=== PATIENT | female | born 1935 | race Caucasian/White ===

== ENCOUNTER → 2020-09-01 01:01 | Outpatient (CLI) | payer MEDICARE, SELFPAY ==
[2020-09-01 19:37] LABS: SARS-CoV-2 RNA PCR Negative
== END ==
PROVIDERS: Nurse Practitioner; PCP Family Medicine; Visit Provider Internal Medicine Gastroenterology
DX: Z01.812 Encounter for preprocedural laboratory examination (principal); Z20.822 Contact with and (suspected) exposure to COVID-19
CPT/HCPCS: C9803; U0003; U0005

== ENCOUNTER 2020-09-05 01:23 | Day surgery (SDC) | payer MEDICARE, SELFPAY ==
[2020-08-24 12:53] VITALS: BMI 25.2
[2020-09-05 06:24] VITALS: BP 161/80; PULSE 84; RESP 15; TEMP 35.9; O2SAT 95; BMI 24.8
[2020-09-05] MEDS: LACTATED RINGERS 1,000 ML 150 ML IV CONT (06:27)
--- NOTE | 2020-09-05 07:15 | WPDANESEPPF ---
Anes - Initial Pre Proc Eval Procedure: Operation Date: 09/05/20 07:30 Proposed Procedures p Colonoscopy - Roman Penny MD Date/Time: 09/05/20 07:15 Surgeon: Roman Penny MD Pre Op Diagnosis: change in bowel habit, hx colon polyp Patient Data Age: 85 Gender: F Height: 5 ft 2 in Weight: 61.6 kg Last Vital Signs Temp 96.7 F L 09/05/20 06:24 Pulse 84 09/05/20 06:24 Resp 15 09/05/20 06:24 BP 161/80 H 09/05/20 06:24 Pulse Ox 95 09/05/20 06:24 Allergies Allergy/AdvReac Type Severity Reaction Status Date / Time No Known Allergies Allergy Verified 09/05/20 06:22 Home Medications Medication Instructions Recorded Confirmed Type dorzolamide 22.3 mg-timolol 6.8 1 drop OPHTHALMIC (EYE) DAILY ml 06/08/19 09/05/20 History mg/mL eye drops netarsudil 0.02 % eye drops 1 drop OPHTHALMIC (EYE) DAILY ml 06/08/19 09/05/20 History ascorbate calcium (vitamin C) 500 500 mg PO DAILY 09/14/19 09/05/20 History mg tablet aspirin 81 mg tablet,delayed 81 mg PO DAILY 09/14/19 09/05/20 History release calcium carbonate 600 mg calcium 600 mg PO DAILY 09/14/19 09/05/20 History (1,500 mg) tablet multivitamin 1 tablet PO DAILY 09/14/19 09/05/20 History omega 0-kce-voh-fish oil 1,200 mg 1 cap PO DAILY 09/14/19 09/05/20 History (144 mg-216 mg) capsule sodium chloride 2 % eye drops 1 drop EACH EYE DAILY 11/17/19 09/05/20 History simvastatin 20 mg tablet 20 mg PO DAILY #90 tablet 01/30/20 09/05/20 Rx amlodipine 2.5 mg tablet See Rx Instructions .ROUTE 07/03/20 09/05/20 Rx .COMPLEX #90 tablet sod picosulf 10 mg-magnes 3.5 160 ml PO BID #160 ml 08/06/20 09/05/20 Rx gram-citric 12 gram/160 mL oral solution raloxifene [Evista] 60 mg PO DAILY 08/24/20 09/05/20 History Patient hx anesthesia problems: none Family hx anesthesia problems: none [facility] Past Medical History Medical History (Updated 07/31/20 @ 10:26 by Roman Penny MD) Chronic back pain Colon polyps Glaucoma Hyperlipidemia Neuropathy Osteoporosis without current pathological fracture Polyneuropathy Scoliosis Trigger finger Vision impairment Surgical History Surgical History History of appendectomy (~1948) History of hand surgery (~2005) trigger finger surgery History of hysterectomy (~1972) age 37 Hx of breast augmentation (~1977) Hx of tonsillectomy (~1948) [place] teeth extracted (~1953) Family History Family History Sibling Family history of osteoarthritis Family history of malignant neoplasm Family history of malignant neoplasm of breast in first degree relative Father Family history of Parkinson's disease Mother Family history of lung cancer Patient's mother is Grandparent Family history of malignant neoplasm Other Family history of arthritis Social History Social History Smoking status: Former smoker Tobacco type: cigarettes Alcohol intake: current Substance use: never Substance use type: does not use Living arrangements: with family Gender identity (if verbalized by the patient): Female Anes - Eval Final PreProcedure Day of Procedure 09/05/20 07:15 Patient weight: normal Heart: regular rate and rhythm Lungs: clear to auscultation Airway: Mallampati scale class II Neurological: alert and oriented Last oral intake: >/= 8 hours ASA classification: III Emergent: no Anesthetic plan: proceed Anesthesia type and monitoring: general GIVS and standard monitoring Informed Consent: The patient's anesthetic plan and its attendant risks and benefits were discussed with the patient/family/POA. Questions were solicited and answers provided to the satisfaction of the patient/family/POA.
--- NOTE | 2020-09-05 07:29 | WPDHPUPDATE1 ---
History and Physical Update Update Date/Time: 09/05/20 07:29 History and Physical has been reviewed, including an updated exam of the patient. There are NO changes in the patient's condition. Risks, benefits, and alternatives have been discussed and questions answered. Patient agrees to proceed with procedure.
[2020-09-05 07:57] VITALS: BP 141/61; PULSE 72; RESP 18; O2SAT 96
[2020-09-05 08:07] VITALS: BP 145/62; PULSE 69; RESP 24; O2SAT 96
[2020-09-05 08:17] VITALS: BP 115/70; PULSE 64; RESP 25; O2SAT 99
--- NOTE | 2020-09-07 10:48 | WPDGICN ---
Assessment and Plan Assessment and plan (1) Colon polyps: Code(s): K63.5 - Polyp of colon Status: Acute Assessment and Plan: patient is a history of colon polyps. Last colonoscopy was 2011. There is no family history of colon polyps. As it has been 7 years since last exam we will proceed with colonoscopy to evaluate for recurrent polyps at this time. (2) Altered bowel habits: Code(s): R19.4 - Change in bowel habit Status: Acute Assessment and Plan: Patient complains of altered bowel habits. Bowel habits actually are regular but she complains of rectal and anal discomfort. She feels as though she may have incomplete evacuation and feels a mass described as a ball in the rectal area. Plan is for continued stool softeners fiber supplement such as Citrucel. Colonoscopy will be performed to evaluate more thoroughly. GI Consult Note Consult date/time: 09/07/20 10:48 HPI: Carolyn Ortiz is a 85 year old female Presents for colonoscopy on 09/05/2020. Patient is seen at the request of Dr. Gómez. Patient reports alteration in her bowel habits over the last year. She states that after a bowel movement she continues to have stools suggesting incomplete evacuation. She feels as though she is sitting on a ball . She denies any bleeding or weight loss. She states otherwise her bowels are regular and occur every day. She reports stools are not hard. She has had no weight loss. Family history noncontributory. Patient reports having had colonoscopies every 3-5 years in the past. She did have colon polyps dating back to the 1970s. Most recent colonoscopy 2011. At that time she had an adenomatous colon polyp. Family history is negative. No one else in the family has had colon polyps or cancer. Review of Systems Review of Systems: All systems reviewed & are unremarkable except as noted in HPI and below PMFSH Past Medical History Medical History (Updated 07/31/20 @ 10:26 by Roman Penny MD) Chronic back pain Colon polyps Glaucoma Hyperlipidemia Neuropathy Osteoporosis without current pathological fracture Polyneuropathy Scoliosis Trigger finger Vision impairment Surgical History Surgical History History of appendectomy (~1949) History of hand surgery (~2005) trigger finger surgery History of hysterectomy (~1972) age 37 Hx of breast augmentation (~1977) Hx of tonsillectomy (~1948) [place] teeth extracted (~1953) Family History Family History Sibling Family history of osteoarthritis Family history of malignant neoplasm Family history of malignant neoplasm of breast in first degree relative Father Family history of Parkinson's disease Mother Family history of lung cancer Patient's mother is Grandparent Family history of malignant neoplasm Other Family history of arthritis Social History Social History Smoking status: Former smoker Tobacco type: cigarettes Alcohol intake: current Substance use: never Substance use type: does not use Living arrangements: with family Gender identity (if verbalized by the patient): Female Meds Home Medications and Allergies Home Medications Medication Instructions Recorded Confirmed Type dorzolamide 22.3 mg-timolol 6.8 1 drop OPHTHALMIC (EYE) DAILY ml 06/08/19 09/05/20 History mg/mL eye drops netarsudil 0.02 % eye drops 1 drop OPHTHALMIC (EYE) DAILY ml 06/08/19 09/05/20 History ascorbate calcium (vitamin C) 500 500 mg PO DAILY 09/14/19 09/05/20 History mg tablet aspirin 81 mg tablet,delayed 81 mg PO DAILY 09/14/19 09/05/20 History release calcium carbonate 600 mg calcium 600 mg PO DAILY 09/14/19 09/05/20 History (1,500 mg) tablet multivitamin 1 tablet PO DAILY 09/14/19 09/05/20 History omega 3-dha-epa-f
== END 2020-09-05 08:35 | disposition home or self-care (01) ==
PROVIDERS: PCP Family Medicine; Visit Provider Internal Medicine Gastroenterology
PROC: 0DJD8ZZ Inspection of Lower Intestinal Tract, Via Natural or Artificial Opening Endoscopic (ICD-10-PCS; CPT 45378; principal; 2020-09-05 07:30)
DX: K62.89 Other specified diseases of anus and rectum (principal); K59.00 Constipation, unspecified; K57.30 Diverticulosis of large intestine without perforation or abscess without bleeding; K64.8 Other hemorrhoids; Z86.010 Personal history of colon polyps; E78.5 Hyperlipidemia, unspecified; M81.0 Age-related osteoporosis without current pathological fracture; G62.9 Polyneuropathy, unspecified; H40.9 Unspecified glaucoma; Z79.82 Long term (current) use of aspirin; Z87.891 Personal history of nicotine dependence
CPT/HCPCS: 45378; J2704; J7120

== ENCOUNTER → 2020-11-10 08:18 | Outpatient (CLI) | payer MEDICARE, SELFPAY ==
--- NOTE | ~2020-11-10 | XR_ITS ---
EXAMINATION: XR chest 2V DATE: 11/10/2020 08:53 INDICATION: Pleurodynia TECHNIQUE: frontal and lateral views of the chest were obtained. COMPARISON: Chest radiograph dated 03/14/2011 FINDINGS: The lungs are clear with no focal airspace opacities, pulmonary edema, pleural effusion or pneumothor ax. The cardiomediastinal silhouette is normal. Bilateral breast implants. Upper thoracic kyphosis an d lower thoracic dextroscoliosis. Margins of the vertebral bodies are difficult to distinguish the mi d thoracic spine due to diffuse osteopenia. IMPRESSION: 1. No acute cardiopulmonary disease. Reviewed, dictated and finalized at location A.
== END ==
PROVIDERS: PCP Family Medicine; Visit Provider Nurse Practitioner Family
DX: R07.81 Pleurodynia (principal)
CPT/HCPCS: 71046

== ENCOUNTER 2021-12-11 11:31 | Outpatient (CLI) | payer MEDICARE, SELFPAY ==
[2021-12-11 18:40] LABS: Alanine Aminotransferase 22 U/L (6-35); Albumin Level 4.4 g/dL (3.5-5.1); Alkaline Phosphatase 48 U/L (38-126); Anion Gap 13 mmol/L (8-16); Aspartate Amino Transferase 63 U/L (14-36); Bilirubin,Total 0.5 mg/dL (0.2-1.3); Blood Urea Nitrogen 15 mg/dL (7-17); Calcium 9.4 mg/dL (8.4-10.2); Carbon Dioxide 28 mmol/L (22-30); Chloride 103 mmol/L (98-107); Estimated Glomerular Filt Rate > 60; Glucose 74 mg/dL (65-110); Potassium 3.9 mmol/L (3.4-5.0); Sodium 144 mmol/L (137-145)
== END 2021-12-11 11:32 | disposition home or self-care (01) ==
LOC: ANHGOSHLAB 11:32
PROVIDERS: PCP Family Medicine; Visit Provider Family Medicine
DX: E78.5 Hyperlipidemia, unspecified (principal); I10 Essential (primary) hypertension
CPT/HCPCS: 36415; 80053

== ENCOUNTER → 2022-01-02 10:49 | Outpatient (CLI) | payer MEDICARE, SELFPAY ==
--- NOTE | ~2022-01-02 | XR_ITS ---
EXAMINATION: XR knee LT min 4V DATE: 01/02/2022 11:22 INDICATION: Left knee pain. TECHNIQUE: 4 views of left knee were obtained. COMPARISON: None. FINDINGS: Bone alignment is normal. No fracture. There is moderate osteoarthritis of medial compartme nt and mild osteoarthritis of lateral and patellofemoral compartments. There is a small knee joint ef fusion. IMPRESSION: 1. Moderate left knee osteoarthritis. 2. Small left knee joint effusion. Reviewed, dictated and finalized at location A.
== END ==
PROVIDERS: PCP Family Medicine; Visit Provider Family Medicine
DX: M17.12 Unilateral primary osteoarthritis, left knee (principal); M25.462 Effusion, left knee
CPT/HCPCS: 73564

== ENCOUNTER 2022-01-17 10:08 | Outpatient (CLI) | payer MEDICARE, SELFPAY ==
[2022-01-17 19:56] LABS: Alanine Aminotransferase 21 U/L (6-35); Albumin Level 4.4 g/dL (3.5-5.1); Alkaline Phosphatase 47 U/L (38-126); Anion Gap 14 mmol/L (8-16); Aspartate Amino Transferase 31 U/L (14-36); Bilirubin,Total 0.4 mg/dL (0.2-1.3); Blood Urea Nitrogen 10 mg/dL (7-17); Calcium 9.1 mg/dL (8.4-10.2); Carbon Dioxide 28 mmol/L (22-30); Chloride 99 mmol/L (98-107); Estimated Glomerular Filt Rate > 60; Glucose 93 mg/dL (65-110); Potassium 3.9 mmol/L (3.4-5.0); Sodium 141 mmol/L (137-145)
== END 2022-01-17 10:09 | disposition home or self-care (01) ==
LOC: ANHGOSHLAB 10:09
PROVIDERS: PCP Family Medicine; Visit Provider Family Medicine
DX: R35.0 Frequency of micturition (principal); I10 Essential (primary) hypertension
CPT/HCPCS: 36415; 80053

== ENCOUNTER 2022-01-20 08:59 | Outpatient (NON) | payer MEDICARE, SELFPAY ==
[2022-01-20 18:44] LABS: Add Urine Microscopic? NO; Appearance Urine Clear (Clear); Bilirubin Urine Negative (Negative); Blood Urine Negative (Negative); Color Urine Straw (Yellow); Glucose Urine UA Negative (Negative); Ketones Urine Negative (Negative); Leukocyte Esterase Ur Negative LEU/UL (Negative); Nitrate Urine Negative (Negative); Protein Urine Negative (Negative); Specific Grav Ur 1.005 (1.001-1.035); Urobilinogen Urine Negative mg/dL (<2.0)
== END 2022-01-20 09:00 | disposition home or self-care (01) ==
LOC: ANHGOSHLAB 09:01
PROVIDERS: PCP Family Medicine; Visit Provider Family Medicine
DX: R35.0 Frequency of micturition (principal)
CPT/HCPCS: 81003

== ENCOUNTER 2022-06-18 11:02 | Outpatient (CLI) | payer MEDICARE, SELFPAY ==
[2022-06-18 19:36] LABS: Vitamin D 25 Hydroxy 38.7 ng/mL
[2022-06-18 19:37] LABS: Hematocrit 42.4 % (37.0-47.0); Hemoglobin 13.9 g/dL (12.0-15.0); Mean Corpuscular HGB Conc 32.8 g/dl (32-36); Mean Corpuscular Hemoglobin 32.5 pg (26-34); Mean Corpuscular Volume 99.1 fl (80-100); Mean Platelet Volume 10.1 fl (7.4-10.4); Platelet Count Result 272 k/mm3 (150-375); Red Blood Count 4.28 M/mm3 (4.2-5.4); Red Cell Distribution Width 13.3 % (11.5-14.5); White Blood Count 5.3 K/mm3 (4.5-10.0)
[2022-06-18 19:48] LABS: Alanine Aminotransferase 26 U/L (6-35); Albumin Level 4.5 g/dL (3.5-5.1); Alkaline Phosphatase 56 U/L (38-126); Anion Gap 9 mmol/L (8-16); Aspartate Amino Transferase 31 U/L (14-36); Bilirubin,Total 0.3 mg/dL (0.2-1.3); Blood Urea Nitrogen 11 mg/dL (7-17); Carbon Dioxide 28 mmol/L (22-30); Chloride 106 mmol/L (98-107); Cholesterol 182 mg/dL (0-200); Estimated Glomerular Filt Rate > 60; Glucose 94 mg/dL (65-110); HDL Direct 46 mg/dL; Potassium 4.2 mmol/L (3.4-5.0); Sodium 143 mmol/L (137-145); Triglycerides 140 mg/dL (<150)
[2022-06-18 20:04] LABS: LDL Cholesterol Direct 98 mg/dL
[2022-06-18 20:37] LABS: Band Neutrophils Percent 9 % (0-6); Eosinophils Absolute Manual 0.05 K/mm3 (0.02-0.5); Eosinophils Percent Manual 1 % (0-4); Monocytes Percent Manual 2 % (3-9); Neutrophils Absolute Manual 3.23 K/mm3 (1.7-7.2); Neutrophils Percent Manual 52 % (46-73); Total Cells Counted 100
[2022-06-18 20:38] LABS: Platelet Estimate Adequate (Adequate); Schistocytes None Seen (NORMAL)
[2022-06-18 20:39] LABS: Large Platelets Present
== END 2022-06-18 11:03 | disposition home or self-care (01) ==
LOC: ANHGOSHLAB 11:04
PROVIDERS: PCP Family Medicine; Visit Provider Nurse Practitioner
DX: E55.9 Vitamin D deficiency, unspecified (principal); I10 Essential (primary) hypertension; E78.5 Hyperlipidemia, unspecified
CPT/HCPCS: 36415; 80053; 80061; 82306; 85025; 87086

== ENCOUNTER 2022-06-18 19:10 | Outpatient (NON) | payer MEDICARE, SELFPAY | END 2022-06-18 19:11 | disposition home or self-care (01) | LOC: ANHLAB 19:12 | PROVIDERS: PCP Family Medicine; Visit Provider Nurse Practitioner | DX: R35.0 Frequency of micturition (principal) | CPT/HCPCS: 87086 ==

== ENCOUNTER → 2022-09-10 08:39 | Outpatient (CLI) | payer MEDICARE, SELFPAY ==
--- NOTE | ~2022-09-10 | DEXA_ITS ---
Bone Density Report Name: CLINT ARREOLA Age: 87 Sex: Female Ethnicity: White Date of : 1935 Indication: osteopenia; height loss; prior fracture; hysterectomy; postmenopausal Referring Provider: RUDDY ARELLANO Study: Bone densitometry was performed. Exam Date: September 10, 2022 Accession number: [id number] Bone Density: Region BMD T-score Z-score Classification AP Spine (L1, L3) 1.128 1.0 3.8 Normal Femoral Neck (Left) 0.585 -2.4 0.1 Osteopenia Total Hip (Left) 0.704 -2.0 0.4 Osteopenia Femoral Neck (Right) 0.542 -2.8 -0.2 Osteoporosis Total Hip (Right) 0.665 -2.3 0.1 Osteopenia Total Hip Mean 0.685 -2.2 0.3 Osteopenia World Health Organization criteria for BMD impression classify patients as: Normal (T-score at or above -1.0), Osteopenia (T-score between -1.0 and -2.5), or Osteoporosis (T-score at or below -2.5). 10-year Fracture Risk: FRAX not reported because: Some T-score for Spine Total or Hip Total or Femoral Neck at or below -2.5 Previous Exams: Region Exam Age BMD T-score BMD Change BMD Change Date g/cm2 vs Baseline vs Previous AP Spine(L1, L3) 09/10/2022 87 1.128 1.0 0.281* 0.269* 12/28/2014 79 0.859 -1.4 0.012 0.012 11/02/2006 71 0.847 -1.5 Total Hip(Left) 09/10/2022 87 0.704 -2.0 -0.090* -0.038* 06/29/2018 83 0.742 -1.6 -0.052* -0.051* 12/28/2014 79 0.792 -1.2 -0.002 -0.002 11/02/2006 71 0.794 -1.2 Total Hip(Right) 09/10/2022 87 0.665 -2.3 -0.084* -0.012 06/29/2018 83 0.677 -2.2 -0.072* -0.032* 12/28/2014 79 0.708 -1.9 -0.041* -0.041* 11/02/2006 71 0.749 -1.6 *Denotes significance at 95% confidence level, LSC for AP Spine = 0.022 g/cm2, LSC for Total Hip = 0.027 g/cm2 Clinical Information Provided by Patient: Has had a low trauma fracture Has used the following medications: Evista (i.e. raloxifene) Has the following medical conditions: Hysterectomy Patient maximum height was 63.5 Menopause Age: 39 No regular weight bearing exercise Drinks caffeinated beverages Onset of menses at age 13 Number of children 3 Impression: The patient has established osteoporosis, based on the Right Femoral Neck T-score and the existence of a prior fracture. The patient has risk factors, including: previous fracture. The BMD for the Total Hip(Left) decreased, changing
== END ==
PROVIDERS: PCP Nurse Practitioner; Visit Provider Nurse Practitioner
DX: Z78.0 Asymptomatic menopausal state (principal); M85.852 Other specified disorders of bone density and structure, left thigh; M85.851 Other specified disorders of bone density and structure, right thigh; M81.0 Age-related osteoporosis without current pathological fracture
CPT/HCPCS: 77080

== ENCOUNTER 2022-12-17 10:12 | Outpatient (CLI) | payer MEDICARE, SELFPAY ==
[2022-12-17 11:46] LABS: Alanine Aminotransferase 24 U/L (6-35); Albumin Level 4.3 g/dL (3.5-5.1); Alkaline Phosphatase 50 U/L (38-126); Anion Gap 6 mmol/L (8-16); Aspartate Amino Transferase 38 U/L (14-36); Bilirubin,Total 0.7 mg/dL (0.2-1.3); Blood Urea Nitrogen 17 mg/dL (7-17); Carbon Dioxide 32 mmol/L (22-30); Chloride 105 mmol/L (98-107); Estimated Glomerular Filt Rate > 60; Glucose 94 mg/dL (65-110); Potassium 4.5 mmol/L (3.4-5.0); Sodium 143 mmol/L (137-145)
== END 2022-12-17 10:13 | disposition home or self-care (01) ==
PROVIDERS: PCP Family Medicine; Visit Provider Family Medicine
DX: I10 Essential (primary) hypertension (principal); Z79.899 Other long term (current) drug therapy
CPT/HCPCS: 36415; 80053

== ENCOUNTER 2023-06-25 10:19 | Outpatient (CLI) | payer MEDICARE, SELFPAY ==
[2023-06-25 12:20] LABS: Basophils Percent Auto 0.5 % (0.2-1.2); Eosinophils Absolute Auto 0.1 K/mm3 (0-0.3); Eosinophils Percent Auto 0.8 % (0-4.4); Hematocrit 43.7 % (37.0-47.0); Immature Granulocyte Absolute 0.02 K/mm3 (0.00-0.031); Immature Granulocyte Percent A 0.3 % (0-0.5); Lymphocytes Percent Auto 22.9 % (18.3-44.2); Mean Corpuscular Hemoglobin 33.3 pg (26-34); Mean Platelet Volume 10.1 fl (7.4-10.4); Monocytes Absolute Auto 0.5 K/mm3 (0.1-0.6); Monocytes Percent Auto 6.3 % (2.6-8.5); Neutrophils Absolute Auto 5.1 K/mm3 (1.3-6.7); Neutrophils Percent Auto 69.2 % (45.5-73.1); Platelet Count Result 342 k/mm3 (150-375); Red Cell Distribution Width 13.5 % (11.5-14.5); White Blood Count 7.4 K/mm3 (4.5-10.0)
[2023-06-25 12:28] LABS: Alanine Aminotransferase 20 U/L (6-35); Albumin Level 4.5 g/dL (3.5-5.1); Alkaline Phosphatase 50 U/L (38-126); Anion Gap 5 mmol/L (4-12); Aspartate Amino Transferase 47 U/L (14-36); Bilirubin,Total 0.6 mg/dL (0.2-1.3); Blood Urea Nitrogen 16 mg/dL (7-17); Calcium 9.5 mg/dL (8.4-10.2); Carbon Dioxide 30 mmol/L (22-30); Chloride 106 mmol/L (98-107); Cholesterol 169 mg/dL (0-200); Estimated Glomerular Filt Rate > 60; Glucose 95 mg/dL (65-110); HDL Direct 57 mg/dL; Potassium 3.8 mmol/L (3.4-5.0); Sodium 141 mmol/L (137-145); Triglycerides 148 mg/dL (<150)
[2023-06-25 12:40] LABS: LDL Cholesterol Direct 85 mg/dL
[2023-06-25 12:52] LABS: Vitamin D 25 Hydroxy 45.2 ng/mL
[2023-06-25 13:13] LABS: Hemoglobin A1C 5.6 % (<5.7)
== END 2023-06-25 10:20 | disposition home or self-care (01) ==
LOC: ANHGOSHLAB 10:20
PROVIDERS: PCP Family Medicine; Visit Provider Family Medicine
DX: E78.5 Hyperlipidemia, unspecified (principal); I10 Essential (primary) hypertension; E53.8 Deficiency of other specified B group vitamins; E55.9 Vitamin D deficiency, unspecified; R73.9 Hyperglycemia, unspecified
CPT/HCPCS: 36415; 80053; 80061; 82306; 82607; 83036; 84443; 85025

== ENCOUNTER 2023-12-09 12:40 | Outpatient (CLI) | payer MEDICARE, SELFPAY ==
--- NOTE | 2023-12-09 14:30 | NEURO_ITS ---
Impression: # Complains of numbness of feet. # Axonal motor/sensory neuropathy. # Abnormal neurogenic Needle/EMG exam. # Clinical correlation recommended. Nerve Conduction Studies Anti Sensory Summary Table Stim Site NR Peak (ms) P-T Amp (?V) Site1 Site2 Delta-P (ms) Dist (cm) Anshul (m/s) Left Sup Fibular Anti Sensory (Ant Lat Mall) NO RESPONSE 14 cm NR 14 cm Ant Lat Mall 16.0 Right Sup Fibular Anti Sensory (Ant Lat Mall) NO RESPONSE 14 cm NR 14 cm Ant Lat Mall 16.0 Left Sural Anti Sensory (Lat Mall) Calf 6.9 4.9 Calf Lat Mall 6.9 16.0 23 Right Sural Anti Sensory (Lat Mall) NO RESPONSE Calf NR Calf Lat Mall 16.0 Motor Summary Table Stim Site NR Onset (ms) O-P Amp (mV) Site1 Site2 Delta-0 (ms) Dist (cm) Anshul (m/s) Left Peroneal Motor (Vastus Med) Ankle 5.6 0.9 Popit Ankle 9.3 40.0 43 Popit 14.9 0.0 Right Peroneal Motor (Vastus Med) Ankle 4.0 1.6 Popit Ankle 8.0 36.0 45 Popit 12.0 1.2 Left Tibial Motor (Abd Olivarez Brev) Ankle 4.4 1.7 Knee Ankle 8.8 39.0 44 Knee 13.2 1.1 Right Tibial Motor (Abd Olivarez Brev) Ankle 4.3 2.8 Knee Ankle 8.1 37.0 46 Knee 12.4 2.7 F Wave Studies NR F-Lat (ms) L-R F-Lat (ms) Left Peroneal (Mrkrs) (EDB) NO RESPONSE NR Right Peroneal (Mrkrs) (EDB) 48.28 Left Tibial (Mrkrs) (Abd Hallucis) 54.00 3.13 Right Tibial (Mrkrs) (Abd Hallucis) 50.87 3.13 EMG Side Muscle Nerve Root Ins Act Fibs Amp Dur Recrt Comment Right AntTibialis Dp Br Fibular L4-5 Nml Nml Nml >12ms +1 Right Gastroc Tibial S1-2 Nml Nml Nml >12ms +1 Right Fibularis Long Sup Br Fibular L5-S1 Nml Nml Nml >12ms +1 Right Flex Dig Long Tibial L5-S2 Nml Nml Nml >12ms +1 Right Ext Dig Brev Dp Br Fibular L5, S1 Nml Nml Nml >12ms +3 Right QuadratusFem QuadFemoris L4-5, S1 Nml Nml Nml Nml Nml Left AntTibialis Dp Br Fibular L4-5 Nml Nml Nml >12ms +1 Left Gastroc Tibial S1-2 Nml Nml Nml >12ms +1 Left Fibularis Long Sup Br Fibular L5-S1 Nml Nml Nml >12ms +1 Left Flex Dig Long Tibial L5-S2 Nml Nml Nml >12ms +1 Left Ext Dig Brev Dp Br Fibular L5, S1 Nml Nml Nml >12ms +3 Left QuadratusFem QuadFemoris L4-5, S1 Nml Nml Nml Nml Nml MTDD
== END 2023-12-09 12:41 | disposition home or self-care (01) ==
LOC: ANHNEURO 12:42
PROVIDERS: PCP Family Medicine; Visit Provider Family Medicine
DX: G62.9 Polyneuropathy, unspecified (principal); M79.604 Pain in right leg; M79.605 Pain in left leg; R94.131 Abnormal electromyogram [EMG]
CPT/HCPCS: 95886; 95910

== ENCOUNTER 2023-12-28 11:22 | Outpatient (CLI) | payer MEDICARE, SELFPAY ==
[2023-12-28 13:46] LABS: Alanine Aminotransferase 21 U/L (6-35); Albumin Level 4.4 g/dL (3.5-5.1); Alkaline Phosphatase 56 U/L (38-126); Anion Gap 7 mmol/L (4-12); Aspartate Amino Transferase 57 U/L (14-36); Bilirubin,Total 0.6 mg/dL (0.2-1.3); Blood Urea Nitrogen 16 mg/dL (7-17); Calcium 9.5 mg/dL (8.4-10.2); Carbon Dioxide 30 mmol/L (22-30); Chloride 103 mmol/L (98-107); Estimated Glomerular Filt Rate > 60; Glucose 95 mg/dL (65-110); Potassium 4.6 mmol/L (3.4-5.0); Sodium 140 mmol/L (137-145)
[2023-12-28 14:41] LABS: Hemoglobin A1C 5.6 % (<5.7)
== END 2023-12-28 11:23 | disposition home or self-care (01) ==
LOC: ANHGOSHLAB 11:23
PROVIDERS: PCP Family Medicine; Visit Provider Family Medicine
DX: G62.9 Polyneuropathy, unspecified (principal); R73.9 Hyperglycemia, unspecified; I10 Essential (primary) hypertension
CPT/HCPCS: 36415; 80053; 83036

== ENCOUNTER 2024-01-11 09:40 | Outpatient (CLI) | payer MEDICARE, SELFPAY ==
--- NOTE | ~2024-01-11 | US_ITS ---
ULTRASOUND ANKLE BRACHIAL INDEX Ordering provider: Jose Gómez MD History: . I73.9 - Peripheral vascular disease, unspecified . Comparison: None. FINDINGS: Right brachial systolic blood pressure: 121 mmHg Left brachial systolic blood pressure: 116 mmHg Right ankle systolic blood pressure: 135 mmHg Left ankle systolic blood pressure: 134 mmHg Right ankle/arm index (SUYAPA): 1.12 Left ankle/arm index (SUYAPA): 1.11 Right TBI is 0.88. Left TBI is 0.9. Note regarding SUYAPA: --Normal= 1.0 or slightly greater. --Claudication (moderate stenosis or occlusive state)= 0.6 to 0.9. --Rest pain (severe occlusive states)= 0.5 or less. IMPRESSION: Normal SUYAPA bilaterally. Reviewed, dictated and finalized at location A. IMPRESSION: Normal SUYAPA bilaterally.
== END 2024-01-11 09:41 | disposition home or self-care (01) ==
LOC: ANHIMG 09:45
PROVIDERS: PCP Family Medicine; Visit Provider Family Medicine
DX: I73.9 Peripheral vascular disease, unspecified (principal); G62.9 Polyneuropathy, unspecified; M79.604 Pain in right leg; M79.605 Pain in left leg
CPT/HCPCS: 93923

== ENCOUNTER 2024-01-27 09:15 | Outpatient (CLI) | payer MEDICARE, SELFPAY ==
--- NOTE | ~2024-01-27 | XR_ITS ---
Left Knee Technique: AP, lateral, and sunrise views were obtained. Clinical History: Osteoarthritis Findings: No fracture or dislocation is seen. There is medial compartment narrowing with mild reactiv e sclerosis in the medial compartment.. Soft tissues are unremarkable. No joint effusion is seen. Impression: Moderate to advanced degenerative change of the medial compartment. Reviewed, dictated and finalized at location . Impression: Moderate to advanced degenerative change of the medial compartment.
== END 2024-01-27 09:16 | disposition home or self-care (01) ==
LOC: MICIMG 09:18
PROVIDERS: PCP Orthopaedic Surgery; Visit Provider Orthopaedic Surgery
DX: M17.12 Unilateral primary osteoarthritis, left knee (principal)
CPT/HCPCS: 73564

== ENCOUNTER 2024-03-02 08:08 | Outpatient (CLI) | payer MEDICARE, SELFPAY ==
[2024-03-02 17:06] LABS: Kit Draw Collected
== END 2024-03-02 08:09 | disposition home or self-care (01) ==
PROVIDERS: PCP Orthopaedic Surgery; Visit Provider Psychiatry & Neurology Neurology
DX: G62.9 Polyneuropathy, unspecified (principal)
CPT/HCPCS: 36415

== ENCOUNTER 2024-07-05 11:27 | Outpatient (CLI) | payer MEDICARE, SELFPAY ==
--- OUTSIDE RECORDS SUMMARY | 2024-07-05 13:03 | XMS_ITS | Referral Summary ---
Author Organization [facility] Address [address] [place] [address] Care Team Providers Care Animal Daycare Provider Name Role Phone Izabela Gómez MD Primary Care Provider Allergies No known active allergies Medications peg 400-propylene glycol (SYSTANE) 0.4-0.3 % ophthalmic solution Active raloxifene (EVISTA) 60 mg tablet Take 1 tablet (60 mg total) by mouth daily Active aspirin 81 mg enteric coated tablet Take 1 tablet (81 mg total) by mouth daily Active omega-3 fatty acids-fish oil 300-1,000 mg capsule Take by mouth Active cholecalciferol (VITAMIN D-3) 1,000 unit capsule Take by mouth Act sandrita polycarbophil (EQUALACTIN) 500 mg chewable tablet Take by mouth Active ascorbic acid,vitamin C,,bulk, 100 % powder Take by mouth Active simvastatin (ZOCOR) 20 mg tablet 09/27/19 20 Active calcium acetate,phosphat bind, (PHOSLO) 667 mg tablet Take 2 tablets (1,334 mg total) by mouth 3 (three) times a day with meals Active gabapentin (NEURONTIN) 300 mg capsule 11/29/19 23 Active amLODIPine (NORVASC) 5 mg tablet 11/29/19 23 Active sodium chloride 5 % ophthalmic ointmentIndications:C orneal Edema Apply 1 drop to both eyes nightly Active netarsudiL (Rhopressa) 0.02 % dropsIndications: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, severe stage Administer 0.05 mL (1 drop total) into both eyes nightly 12.5 mL 3 02/17/20 24 025 Active dorzolamide-timoloL (COSOPT) 22.3-6.8 mg/mL ophthalmic solutionIndications:C 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, severe stage Administer 1 drop into both eyes 2 (two) times a day 30 mL 3 02/17/20 24 Active Active Problems Problem Noted Date Diagnosed Date Corneal edema of left eye 02/11/2023 Assessment & Plan (02/17/2024 10:06 PM POLICE JUDGE): No significant effect on vision at this time Multifactorial etiology with 2 GDIs, hx of uveitis Observe for now Trial of Karlie 128 gtts Assessment & Plan (02/11/2023 8:11 PM POLICE JUDGE): No significant effect on vision at this time Multifactorial etiology with 2 GDIs, hx of uveitis Observe for now Full incontinence of feces 08/13/2022 Assessment & Plan (08/13/2022 2:44 PM CDT): To benefiber to bulk up stools To rectal kegals May be a candidate for pelvic floor pt. 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 No inflammation today Assessment & Plan (04/07/2018 2:20 PM POLICE JUDGE): Mild NGAU resolved left eye (OS)- residual pigmented KP, 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 AC cell resolved on pred forte (PF) 4-3-2-1-1 (5 weeks) ?herpetic etiology. Defer uveitis labs at this time- discussed with pt. Defer trial of valtrex with infrequent, mild inflammation Assessment & Plan (02/24/2018 11:20 AM POLICE JUDGE): New inflammatory component - has had uveitis in past Add pred forte (PF) qid then slowly taper F/U 1 month Pseudophakia of both eyes 10/21/2017 Assessment & Plan (10/21/2017 3:40 PM CDT): Not visually significant. 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 Dodson 6 months Pt prefers to see me annually for now Assessment & Plan (02/11/2023 8:10 PM POLICE JUDGE): intraocular pressure (IOP) remains near single digits both eyes (OU) Pt tolerating meds and wishes to continue for now Low Vision referral- Concern of safe mobility F/U [address] Dodson, [facility] Assessment & Plan (10/09/2021 6:52 PM CDT): intraocular pressure (IOP) remains in single digits Pt tolerating meds and wishes to continue for now Low Vision referral- given pamphlet. Concern of safe mobility F/U 6 months with [facility] Georges Assessment & Plan (05/08/2021 11:32 AM POLICE JUDGE): intraocular pressure (IOP) remains in single digits Pt tolerating meds and wishes to continue for now RTC [address] Dodson- [place] visual field (HVF) 10-2 OU Low Vision referral- discussed with pt, lives in [place] and will pursue locally, doesn't want to go to [facility] Assessment & Plan (08/15/2020 7:46 PM CDT): IOPs 6/7.5 on 3 classes OU HVF 10-2 stable both eyes (OU) Pt tolerating meds and wishes to continue for now RTC [address] Dodson Low Vision referral- discussed with pt, lives in [place] and will pursue locally, doesn't want to go to [facility] Assessment & Plan (10/12/2019 8:39 PM CDT): S/p BGV OS 07/14 most recently IOP stable. Continue Cosopt BID OU and netarsudil (Rhopressa) QD OU (Started by [place]) Still very light sensitive. Has not gotten true FL-41 glasses. Suspect this may help. She saw Dr. Toro in early September. He wondered if we would be able to allow steroid usage for her in context of her glaucoma. Given her history of advanced disease even with low pressure we would be hesitant to start steroids. F/U 4 months MRx with FL41 lenses- Dr. Dodson F/U with 8 months with me Assessment & Plan (11/10/2018 10:20 AM CDT): S/p BGV OS 07/14 most recently IOP stable. HVF 10-2 OU stable compared with 07/2017 today Continue Cosopt BID OU and Rhopressa QD OU (Started by [place]) She saw Dr. Toro in early September. He wondered if we would be able to allow steroid usage for her in context of her glaucoma. Given her history of advanced disease even with low pressure we would be hesitant to start steroids. F/U 4 months MRx with FL41 lenses- Dr. Dodson F/U with 8 months with me Assessment & Plan (07/14/2018 10:19 AM CDT): S/p BGV OS 07/14 IOP stable. Continue Cosopt BID OU and Rhopressa QD OU (Started by [place]) Ocular surface irritation OU - persistent photophobia. Low tear stephenson and surface disease OU. Likely gtt related - recommend patient continue PFATs and could consider FL41 lenses in the future. Will refer to Dr. Toro for evaluation Assessment & Plan (04/07/2018 1:31 PM POLICE JUDGE): S/p BGV OS 07/14 IOP stable. Started on rhopressa by doctor at [place] however no change in IOP from when patient was just on cosopt at last visit. Ocular irritation left eye (OS)>OD, likely related to inflammation Pt wishes to continue- feels it may be neuroprotective as she was told at [place]. Assessment & Plan (02/24/2018 11:22 AM POLICE JUDGE): IOP stable. Started on rhopressa by doctor at [place] however no change in IOP from when patient was just on cosopt at last visit. Ocular irritation left eye (OS)>OD, likely related to inflammation Pt wishes to continue- feels it may be neuroprotective as she was told at [place]. Assessment & Plan (10/21/2017 3:43 PM CDT): Pressures overall doing well. Doing well off Pred Forte left eye (OS) currently for mild inflammation. No further evidence of inflammation, though is having some pain. Since she is currently tolerating it well enough, can consider monitoring for now. - Follow-up in 4 months for repeat IOP check History of glaucoma tube shunt procedure 018 Assessment & Plan (08/15/2020 7:47 PM CDT): Tubes covered with SPG/conj Assessment & Plan (10/21/2017 3:43 PM CDT): Doing well. IOP excellent. Continue to monitor Social History Tobacco Use Types Packs/Day Years Used Date Smoking Tobacco: Former Cigarettes Q uit: 1988 Smokeless Tobacco: Never Comments:SMOKED FOR 8 YEARS Humiliation, Afraid, Rape, and Kick questionnair e Answer Date Recorded Within the last year, have y ou been afraid of your partner or ex-partner? No 08/04/2022 Within the last year, have y ou been humiliated or emotionally abused in other ways by your partner or ex-partner? No Within the last year, have y ou been kicked, hit, slapped, or otherwise physically hurt by your partner or ex-partner? No 08/04/2022 Within the last year, have y ou been raped or forced to have any kind of sexual activity by your partner or ex-partner? No 08/04/2022 AUDIT-C Answer Date Recorded Q1: How often do you have a drink containing alc ohol? 2-3 times a week 08/04/2022 Q2: How many drinks containi ng alcohol do you have on a typical day when you are drinking? 1 or 2 08/04/2022 Q3: How often do you have si x or more drinks on one occasion? Never 08/04/2022 PHQ-2 Answer Date Recorded PHQ-2 Total Score (If total score is 3 or more points, staff should administer the PHQ-9) 0 08/04/2022 Comments No Sex and Gender Information Value Date Recorded Sex Assigned at Not on file Legal Sex Female 4:29 AM POLICE JUDGE Gender Identity Not on file Sexual Orientation Not on file Last Filed Vital Signs Vital Sign Reading Time Taken Comments Blood Pressure 140/76 08/04/2022 10:44 AM CDT Pulse 62 08/04/2022 10:44 AM CDT Temperature - - Respiratory Rate - - Oxygen Saturation - - Inhaled Oxygen Concentration - - Weight 61.2 kg (135 lb) 08/04/2022 10:44 AM CDT Height 152.4 cm (5') 08/04/2022 10:44 AM CDT Body Mass Index 26.37 08/04/2022 10:44 AM CDT Plan of Treatment Not on file Insurance MEDICARE COMMERCIAL GENERIC MEDICARE COMMERCIAL GENERIC MEDICARE COMMERCIAL GENERIC Care Teams Animal Daycare Provider Relationship Specialty Start Date End Date Izabela Gómez MD PCP - General 02/13/20
--- OUTSIDE RECORDS SUMMARY | 2024-07-05 13:03 | XMS_ITS | Clinical Summary ---
Author Organization [facility] Address [address] [place] [address] Care Team Providers Care General Inspector Name Role Phone Izabela Gómez MD Primary [...] 02/11/2023 Assessment & Plan (02/17/2024 10:06 PM TIRE ASSEMBLER): No significant effect on vision at this time Multifactorial etiology with 2 GDIs, hx of uveitis Observe for now Trial of Karlie 128 gtts Assessment & Plan (02/11/2023 8:11 PM TIRE ASSEMBLER): No significant effect on vision at this [...] 2019 Assessment & Plan (05/08/2021 11:31 AM TIRE ASSEMBLER): Likely corneal decompensation status post (s/p) GDI [...] today Assessment & Plan (04/07/2018 2:20 PM TIRE ASSEMBLER): Mild NGAU resolved left eye (OS)- residual pigmented KP, 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 AC cell resolved on pred forte (PF) 4-3-2-1-1 (5 weeks) ?herpetic etiology. Defer uveitis labs at this time- discussed with pt. Defer trial of valtrex with infrequent, mild inflammation Assessment & Plan (02/24/2018 11:20 AM TIRE ASSEMBLER): New inflammatory component - has had uveitis in past Add pred forte (PF) qid then slowly taper F/U 1 month Pseudophakia of both eyes 10/21/2017 Assessment & Plan (10/21/2017 3:40 PM CDT): Not visually significant. 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 Dodson 6 months Pt prefers to see me annually for now Assessment & Plan (02/11/2023 8:10 PM TIRE ASSEMBLER): intraocular pressure (IOP) remains near single digits [...] Georges Assessment & Plan (05/08/2021 11:32 AM TIRE ASSEMBLER): intraocular pressure (IOP) remains in single digits Pt tolerating meds and wishes to continue for now RTC [address] Dodson- [place] visual field (HVF) 10-2 OU Low Vision referral- discussed with pt, lives in [place] and will pursue locally, doesn't want to go to [facility] Assessment & Plan (08/15/2020 7:46 PM CDT): IOPs 6/7.5 on 3 classes OU HVF 10-2 stable both eyes (OU) Pt tolerating meds and wishes to continue for now RTC [address] Dodson Low Vision referral- discussed with pt, lives in [place] and will pursue locally, doesn't want to go to [facility] Assessment & Plan (10/12/2019 8:39 PM CDT): [...] OU and Rhopressa QD OU (Started by [place]) She saw Dr. Toro in early September. [...] OU and Rhopressa QD OU (Started by [place]) Ocular surface irritation OU - persistent photophobia. Low tear stephenson and surface disease OU. Likely gtt related - recommend patient continue PFATs and could consider FL41 lenses in the future. Will refer to Dr. Toro for evaluation Assessment & Plan (04/07/2018 1:31 PM TIRE ASSEMBLER): S/p BGV OS 07/14 IOP stable. Started on rhopressa by doctor at [place] however no change in IOP from when patient was just on cosopt at last visit. Ocular irritation left eye (OS)>OD, likely related to inflammation Pt wishes to continue- feels it may be neuroprotective as she was told at [place]. Assessment & Plan (02/24/2018 11:22 AM TIRE ASSEMBLER): IOP stable. Started on rhopressa by doctor at [place] however no change in IOP from when patient was just on cosopt at last visit. Ocular irritation left eye (OS)>OD, likely related to inflammation Pt wishes to continue- feels it may be neuroprotective as she was told at [place]. Assessment & Plan (10/21/2017 3:43 PM CDT): [...] Doing well. IOP excellent. Continue to monitor Surgical History Surgery Date Site/Laterality Comments [place] XCAPSL CTRC RMVL INSJ IO LENS PROSTH W/O ECP Extracaps Cataract Extract With Prosthesis Insert Right Eye - (Added by [facility]) [place] XCAPSL CTRC RMVL INSJ IO LENS PROSTH W/O ECP Extracaps Cataract Extract With Prosthesis Insert Left Eye - (Added by TW Conv) [place] AQUEOUS SHUNT EXTRAOC EQUAT PLATE RSVR W/GRAFT Ant. Sclera Aqueous Shunt To Extraocular [place] Left Eye - (Added by TW Conv) [place] AQUEOUS SHUNT EXTRAOC EQUAT PLATE RSVR W/GRAFT Ant. 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 - (Added by [facility] Conv) Glaucoma Neuropathy Raynaud's disease Hypertension Hyperlipidemia Family History Medical History Relation Name Comments Cancer Brother Glaucoma Maternal Grandmother Glaucoma Mother Lung cancer Mother Cancer Mother's Sister Cancer Sister unsure what typ e Hyperlipidemia Son Hypertension Son Colon cancer Neg Hx poor historian at this point cmt 08/04/22 Relation Name Status Comments Brother Maternal Grandmother Mother Mother's Sister Sister Son Alive Social History Tobacco Use Types Packs/Day Years [...] on file Legal Sex Female 4:29 AM TIRE ASSEMBLER Gender Identity Not on file Sexual Orientation Not on file Obstetrics History Para Term AB IAB SAB Ectopic Multiple Livin g Live Births 5 2 2 1 1 2 3 Date Outcome GA Total Labor Labor/2nd/3rd Weight Sex Type Anes PTL Zully A1 A5 Name Clin 1956 Term 3.175 kg (7 lb) F Vag-S pont Demise 1958 Term 3.204 kg (7 lb 1 oz) M Vag-S pont Living 1959 2.722 kg (6 lb) M Vag-S pont 1961 SAB M Vag-S pont 1963 3.175 kg (7 lb) M Living Last Filed Vital Signs Vital Sign Reading [...] 08/04/2022 10:44 AM CDT Plan of Treatment Health Maintenance Due Date Last Done Comments Fall Risk Assessment 1935 Hepatitis B Screening 05/27/1953 Well Visit 65+ 05/27/2000 DTaP/Tdap/Td Vaccine (1 - Tdap) 10/10/2004 5 Zoster Vaccine (2 of 3) 10/06/2013 08/11/2013, 08/06 Depression Screening 08/05/2023 08/04/2022 Influenza Vaccine (#1) 2023 0, 01/10/2018, 01/29/2017, Additional history exists Pneumococcal vaccine 65+ Completed 017, 01/10/2015, 01/14/2012 Insurance MEDICARE COMMERCIAL GENERIC MEDICARE COMMERCIAL GENERIC MEDICARE COMMERCIAL GENERIC Care Teams General Inspector Relationship Specialty Start Date End Date Izabela Gómez MD PCP - General 02/13/20
[2024-07-05 16:00] LABS: Alanine Aminotransferase 23 U/L (6-35); Albumin Level 4.4 g/dL (3.5-5.1); Alkaline Phosphatase 60 U/L (38-126); Anion Gap 5 mmol/L (4-12); Aspartate Amino Transferase 44 U/L (14-36); Bilirubin,Total 0.7 mg/dL (0.2-1.3); Blood Urea Nitrogen 15 mg/dL (7-17); Calcium 9.1 mg/dL (8.4-10.2); Carbon Dioxide 32 mmol/L (22-30); Chloride 104 mmol/L (98-107); Cholesterol 159 mg/dL (0-200); Estimated Glomerular Filt Rate > 60; Glucose 94 mg/dL (65-110); HDL Direct 58 mg/dL; Potassium 4.4 mmol/L (3.4-5.0); Sodium 141 mmol/L (137-145); Triglycerides 112 mg/dL (<150)
[2024-07-05 16:13] LABS: Vitamin D 25 Hydroxy 40.9 ng/mL
[2024-07-05 16:46] LABS: LDL Cholesterol Direct 69 mg/dL
[2024-07-05 17:27] LABS: Basophils Percent Auto 0.6 % (0.2-1.2); Eosinophils Absolute Auto 0.1 K/mm3 (0-0.3); Eosinophils Percent Auto 0.9 % (0-4.4); Hematocrit 42.1 % (37.0-47.0); Hemoglobin 13.4 g/dL (12.0-15.0); Immature Granulocyte Absolute 0.01 K/mm3 (0.00-0.031); Immature Granulocyte Percent A 0.1 % (0-0.5); Lymphocytes Absolute Auto 1.46 K/mm3 (0.9-3.2); Lymphocytes Percent Auto 20.7 % (18.3-44.2); Mean Corpuscular HGB Conc 31.8 g/dl (32-36); Mean Corpuscular Volume 103.7 fl (80-100); Mean Platelet Volume 10.7 fl (7.4-10.4); Monocytes Absolute Auto 0.5 K/mm3 (0.1-0.6); Neutrophils Percent Auto 70.7 % (45.5-73.1); Platelet Count Result 308 k/mm3 (150-375); Red Blood Count 4.06 M/mm3 (4.2-5.4); Red Cell Distribution Width 13.3 % (11.5-14.5); White Blood Count 7.1 K/mm3 (4.5-10.0)
[2024-07-05 18:30] LABS: Hemoglobin A1C 5.6 % (<5.7)
== END 2024-07-05 11:28 | disposition home or self-care (01) ==
LOC: ANHGOSHLAB 11:28
PROVIDERS: PCP Family Medicine; Visit Provider Family Medicine
DX: I10 Essential (primary) hypertension (principal); E78.5 Hyperlipidemia, unspecified; R73.9 Hyperglycemia, unspecified; E55.9 Vitamin D deficiency, unspecified; Z00.00 Encounter for general adult medical examination without abnormal findings; E53.8 Deficiency of other specified B group vitamins
CPT/HCPCS: 36415; 80053; 80061; 82306; 82607; 83036; 84443; 85025

== ENCOUNTER 2025-01-11 12:49 | Outpatient (CLI) | payer MEDICARE, SELFPAY ==
--- OUTSIDE RECORDS SUMMARY | 2025-01-11 14:34 | XMS_ITS | Clinical Summary ---
Author Organization [facility] Address [address] [place] [address] Care Team Providers Care Stenographic Court Reporter Name Role Phone Izabela Gómez MD Primary [...] 02/11/2023 Assessment & Plan (02/17/2024 10:06 PM FLIGHT RESERVATIONS MANAGER): No significant effect on vision at this time Multifactorial etiology with 2 GDIs, hx of uveitis Observe for now Trial of Karlie 128 gtts Assessment & Plan (02/11/2023 8:11 PM FLIGHT RESERVATIONS MANAGER): No significant effect on vision at this [...] 2019 Assessment & Plan (05/08/2021 11:31 AM FLIGHT RESERVATIONS MANAGER): Likely corneal decompensation status post (s/p) GDI [...] today Assessment & Plan (04/07/2018 2:20 PM FLIGHT RESERVATIONS MANAGER): Mild NGAU resolved left eye (OS)- residual pigmented KP, 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 AC cell resolved on pred forte (PF) 4-3-2-1-1 (5 weeks) ?herpetic etiology. Defer uveitis labs at this time- discussed with pt. Defer trial of valtrex with infrequent, mild inflammation Assessment & Plan (02/24/2018 11:20 AM FLIGHT RESERVATIONS MANAGER): New inflammatory component - has had uveitis in past Add pred forte (PF) qid then slowly taper F/U 1 month Pseudophakia of both eyes 10/21/2017 Assessment & Plan (10/21/2017 3:40 PM CDT): Not visually significant. 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 Dodson 6 months Pt prefers to see me annually for now Assessment & Plan (02/11/2023 8:10 PM FLIGHT RESERVATIONS MANAGER): intraocular pressure (IOP) remains near single digits [...] Georges Assessment & Plan (05/08/2021 11:32 AM FLIGHT RESERVATIONS MANAGER): intraocular pressure (IOP) remains in single digits Pt tolerating meds and wishes to continue for now RTC [address] Dodson- [place] visual field (HVF) 10-2 OU Low Vision referral- discussed with pt, lives in [place] and will pursue locally, doesn't want to go to [facility] Assessment & Plan (08/15/2020 7:46 PM CDT): IOPs 6/7.5 on 3 classes OU HVF 10-2 stable both eyes (OU) Pt tolerating meds and wishes to continue for now RTC [address] Dodson Low Vision referral- discussed with pt, lives in [place] and will pursue locally, doesn't want to go to [facility] Assessment & Plan (10/12/2019 8:39 PM [...] OU and Rhopressa QD OU (Started by [place]) She saw Dr. Toro in early September. [...] OU and Rhopressa QD OU (Started by [place]) Ocular surface irritation OU - persistent photophobia. Low tear stephenson and surface disease OU. Likely gtt related - recommend patient continue PFATs and could consider FL41 lenses in the future. Will refer to Dr. Toro for evaluation Assessment & Plan (04/07/2018 1:31 PM FLIGHT RESERVATIONS MANAGER): S/p BGV OS 07/14 IOP stable. Started on rhopressa by doctor at [place] however no change in IOP from when patient was just on cosopt at last visit. Ocular irritation left eye (OS)>OD, likely related to inflammation Pt wishes to continue- feels it may be neuroprotective as she was told at [place]. Assessment & Plan (02/24/2018 11:22 AM FLIGHT RESERVATIONS MANAGER): IOP stable. Started on rhopressa by doctor at [place] however no change in IOP from when patient was just on cosopt at last visit. Ocular irritation left eye (OS)>OD, likely related to inflammation Pt wishes to continue- feels it may be neuroprotective as she was told at [place]. Assessment & Plan (10/21/2017 3:43 PM CDT): [...] Doing well. IOP excellent. Continue to monitor Encounters Date Type Department Care Team Description 11/02/2024 9:55 AM CDT - 11/02/2024 11:59 PM CDT Hospital Encounter [facility] [address] [place] [phone] Screening mammogram, encounter for Discharge Disposition: Discharge to home or self care from Last 3 Months Surgical History Surgery Date Site/Laterality Comments [place] XCAPSL CTRC RMVL INSJ IO LENS PROSTH W/O ECP Extracaps Cataract Extract With Prosthesis Insert Right Eye - (Added by TW Conv) [place] XCAPSL CTRC RMVL INSJ IO LENS PROSTH W/O ECP Extracaps Cataract Extract With Prosthesis Insert Left Eye - (Added by TW Conv) [place] AQUEOUS SHUNT EXTRAOC EQUAT PLATE RSVR W/GRAFT Ant. Sclera Aqueous Shunt To Extraocular [place] Left Eye - (Added by TW Conv) [place] AQUEOUS SHUNT EXTRAOC EQUAT PLATE RSVR W/GRAFT Ant. Sclera Aqueous Shunt To Extraocular [place] Right Eye - (Added by TW Conv) [...] on file Legal Sex Female 4:29 AM FLIGHT RESERVATIONS MANAGER Gender Identity Not on file Sexual Orientation [...] Last Done Comments Fall Risk Assessment 1935 Osteoporosis Screening-Bone Density Scan 1935 Hepatitis B Screening 05/27/1953 Well Visit 65+ 05/27/2000 DTaP/Tdap/Td Vaccine (1 - Tdap) 10/10/2004 5 Zoster Vaccine (2 of 3) 10/06/2013 08/11/2013, 08/06 Depression Screening 08/05/2023 08/04/2022 Influenza Vaccine (#1) 2024 0, 01/10/2018, 01/29/2017, Additional history exists Pneumococcal vaccine 65+ Completed 017, 01/10/2015, 01/14/2012 Procedures Procedure Name Priority Date/Time Associated Diagnosis Comments SCREENING MAMMOGRAM BILATERAL W NATALIO W IMPLANTS Schedule Routine, Read Routine (OP Routine) 11/02/2024 10:12 AM CDT Screening mammogram, encounter for from Last 3 Months Results * Screening Mammogram Bilateral W Natalio W Implants (11/02/2024 10:12 AM CDT) Anatomical Region Laterality Modality Breast Bilateral Mammography Impressions 11/02/2024 10:15 AM CDT Bilateral No evidence of malignancy in either breast. OVERALL BI-RADS FINAL ASSESSMENT: 2 - Benign RECOMMENDATION: Recommend bilateral annual screening mammography. Decision to continue screening mammography should be made based on clinical factors. Narrative 11/02/2024 10:15 AM CDT EXAMINATION: Screening Mammogram Bilateral W Natalio W Implants: 11/02/2024 COMPARISON: Relevant prior studies available at the time of interpretation were reviewed, including the most recent mammogram on: 09/30/2023. TECHNIQUE: Mammography was performed with 2D and 3D digital breast tomosynthesis (DBT) images. CAD was utilized. BREAST PARENCHYMAL COMPOSITION: The breasts are heterogeneously dense, which may obscure small masses. FINDINGS: Bilateral There is no suspicious mass, calcification, or architectural distortion in either breast.There are bilateral subglandular silicone breast implants. The presence of implants limits the sensitivity of mammography. There are benign calcifications in both breasts. us Self Screening Mammogram IMG MAMMO PROCEDURES Fi nal Result from Last 3 Months Insurance MEDICARE COMMERCIAL GENERIC MEDICARE COMMERCIAL GENERIC MEDICARE COMMERCIAL GENERIC Care Teams Stenographic Court Reporter Relationship Specialty Start Date End Date Izabela Gómez MD [facility] - General 02/13/20
[2025-01-11 18:39] LABS: Alanine Aminotransferase 19 U/L (6-35); Albumin Level 4.4 g/dL (3.5-5.1); Alkaline Phosphatase 53 U/L (38-126); Anion Gap 8 mmol/L (4-12); Aspartate Amino Transferase 44 U/L (14-36); Bilirubin,Total 0.5 mg/dL (0.2-1.3); Blood Urea Nitrogen 15 mg/dL (7-17); Calcium 9.5 mg/dL (8.4-10.2); Carbon Dioxide 30 mmol/L (22-30); Chloride 104 mmol/L (98-107); Estimated Glomerular Filt Rate > 60; Glucose 71 mg/dL (65-110); Potassium 3.8 mmol/L (3.4-5.0); Sodium 142 mmol/L (137-145); Total Protein 7.3 g/dL (6.3-8.2)
== END 2025-01-11 12:50 | disposition home or self-care (01) ==
LOC: ANHGOSHLAB 12:50
PROVIDERS: PCP Family Medicine; Visit Provider Family Medicine
DX: I10 Essential (primary) hypertension (principal)
CPT/HCPCS: 36415; 80053